=== PATIENT | female | born 1980 | race Caucasian/White ===

== ENCOUNTER → 2017-03-04 10:03 | Day surgery (SDC) | payer OTHER ==
[~2017-03-04 10:03] MED LIST: Acetaminophen TAB* 325 MG PO PRN; Dexamethasone IV* 4 MG/ML 1 ML (4 MG) ONE; DiMENhydriNATE IV* 50 MG/ML VIAL IV PUSH PRN; DiMENhydriNATE IV* 50 MG/ML VIAL ONE; Famotidine IV* 10 MG/ML 2 ML (20 mg) IV SLOW PU ONE; Famotidine IV* 10 MG/ML 2 ML (20 mg) ONE; HYDROmorphone* 1 MG/ML 1 ML SYR IV PRN; KETAMINE HCL* 50 MG/ML 10 ML VIAL ONE; Ketorolac INJ* 30 MG/ML 1 ML VIAL ONE; Lidocaine 1% INJ* 10 MG/ML 30 ML SDV ONE; Lidocaine 2% PF * 5 ML VIAL ONE; Midazolam* 1 MG/ML 5 ML VIAL (5 MG) ONE; Misoprostol TAB* 200 MCG ONE; Ondansetron INJ* 2 MG/ML VIAL ONE; Propofol* 10 MG/ML 20 ML BTL IV PUSH ONE; ceFOXitin 2 GM IVPREMIX* 2 GM/50 ML BAG ONE; fentaNYL* 50 MCG/ML 2 ML VIAL (100 MCG VIAL) ONE; oxyCODONE TAB* 5 MG TAB ONE; oxyCODONE TAB* 5 MG TAB PO PRN
[2017-03-04 11:04] LABS: Hematocrit 41 % (35-47); Hemoglobin 13.8 g/dl (12.0-16.0); Mean Corpuscular HGB Conc 34 g/dl (31-36); Mean Corpuscular Hemoglobin 33 pg (27-31); Mean Corpuscular Volume 96 fL (80-97); Mean Platelet Volume 7 um3 (7.4-10.4); Red Blood Count 4.26 10^6/ul (4.0-5.4); Red Cell Distribution Width 13 % (10.5-15); White Blood Count 10.3 10^3/ul (3.5-10.8)
[2017-03-04 11:43] LABS: TSH (Thyroid Stimulating Horm) 0.34 mcIU/mL (0.34-5.60)
[2017-03-04 11:50] LABS: Free T4 1.47 ng/dL (0.61-1.12)
[2017-03-04 12:40] VITALS: BP 110/77
--- NOTE | 2017-03-05 03:07 | OP ---
DATE OF OPERATION: 03/04/17 [facility] DATE OF : 82 SURGEON: Dariela Castillo MD. SUBSTATION OPERATOR CONVERSION: None. ANESTHESIOLOGIST: Ananya Gardner MD ANESTHESIA: Paracervical block with sedation. PRE-OP DIAGNOSIS: Missed , gestational sac 9 weeks. No pole identified. POST-OP DIAGNOSIS: Missed , gestational sac 9 weeks. No pole identified. OPERATIVE PROCEDURE: Dilation, evacuation, and curettage. ESTIMATED BLOOD LOSS: 100 cc. URINE OUTPUT: 50 cc of clear yellow urine. FLUIDS: 600 cc of crystalloid. FINDINGS: Revealed products of conception consistent with intrauterine on postevacuation curettage confirmed removal of products of conception. SPECIMEN: Endometrial contents. COMPLICATIONS: None apparent. DISPOSITION: Stable to recovery room. DESCRIPTION OF PROCEDURE: The patient was placed in dorsal lithotomy position. After undergoing sedation, legs were placed in candy cane stirrups. The perineum and vagina were prepped and draped in the sterile standard fashion. The patient was identified with universal protocol for correct procedure, position and the patient. Self cath was used to drain bladder of clear yellow urine. Self cath was removed. Sterile speculum was inserted. Cervix was visualized, grasped on the posterior lip with a single-tooth tenaculum, and dilated to #10 Hegar dilator. A 10-mm curved suction curette was applied for complete evacuation of intrauterine contents. Sharp curettage confirmed complete removal of intrauterine contents. Single-tooth tenaculum was removed. 800 mcg of misoprostol was placed intravaginally after the sterile speculum was removed. All sponge, needle, instrument, and blade counts were correct throughout the case. The patient tolerated the procedure well and went to the recovery room in stable condition. [id number] #: [id number] [facility]
[2017-03-05 19:14] LABS: Phospholipid Ab IgG < 9.4 GPL; Phospholipid Ab IgM, S < 9.4 MPL
[2017-03-08 17:48] LABS: Factor V Leiden Mutation Negative (Negative); Prothrombin 20210 Mutation Negative (Negative)
== END | disposition home or self-care (01) ==
LOC: OR 10:03
PROVIDERS: ATTEND Obstetrics & Gynecology
DX: O02.1 Missed abortion (principal); E03.9 Hypothyroidism, unspecified; J45.990 Exercise induced bronchospasm
CPT/HCPCS: 36415; 81240; 81241; 81291; 83036; 83605; 84439; 84443; 85025; 86147; 86850; 86870; 86880; 86900; 86901; 88233; 88291; 88305; A9270-GY; J0694; J1100; J1240; J1885; J2001; J2250; J2405; J2704; J3010

== ENCOUNTER 2023-01-19 05:24 | Inpatient (IN) ==
[2023-01-19] MEDS ORDERED: Lactated Ringers 1000 ml BAG 1,000 ML IV ONE (06:00)
[2023-01-19] MEDS ORDERED: Sodium Citrate/Citric Acid LIQ 15 ML UDC PO ONE (06:00)
[2023-01-19] MEDS ORDERED: ceFOXitin 2 GM IVPREMIX 2 GM/50 ML BAG IVPB ONE ×2 (06:00→07:00)
[2023-01-19] MEDS ORDERED: Buffered Lidocaine 1% SYRIN 1 ml INTRADERM ONE (06:00)
[2023-01-19] MEDS ORDERED: Lactated Ringers 1000 ml BAG 1,000 ML IV SCH ×2 (07:00→10:00)
[2023-01-19 07:09] LABS: ABS Basophils 0.1 10^3/uL (0.0-0.1); ABS Eosinophils 0.2 10^3/uL (0.0-0.5); ABS Monocytes 1.1 10^3/uL (0.0-0.9); Eosinophil % 1.2 %; Hematocrit 32.2 % (35-45); Hemoglobin 11.2 g/dL (11.5-14.3); Lymphocyte % 14.7 %; Mean Corpuscular Hemoglobin 32.6 pg (27-33); Mean Corpuscular Hgb Conc 34.7 g/dL (31-36); Mean Corpuscular Volume 93.8 fL (80-97); Mean Platelet Volume 7.6 fL (7.5-11.2); Platelet Count 244 10^3/uL (150-450); Red Blood Count 3.44 10^6/uL (3.63-4.92); Red Cell Distribution Width 13.3 % (12-17); White Blood Count 13.3 10^3/uL (3.8-11.8)
[2023-01-19] MEDS ORDERED: Acetaminophen IV 1 GM/100ML 1,000 MG/100 ML BAG IV PRN (07:20)
[2023-01-19] MEDS ORDERED: Ondansetron 4 mg VIAL 2 MG/ML 2 ml VIAL IV PRN (07:20)
[2023-01-19] MEDS ORDERED: Metoclopramide 5 MG/ML VIAL (10 mg) IV PRN (07:20)
[2023-01-19] MEDS ORDERED: Naloxone 0.4 mg VIAL 0.4 mg/ml 1 ml VIAL IV PUSH PRN (07:20)
[2023-01-19] MEDS ORDERED: Ondansetron 4 mg VIAL 2 MG/ML 2 ml VIAL ONE (07:28)
[2023-01-19] MEDS ORDERED: Oxytocin 10 UNITS/ML 1 ML VIAL ONE (07:28)
[2023-01-19] MEDS ORDERED: Dexamethasone IV 4 MG/ML VIAL 1 ml VIAL ONE (07:28)
[2023-01-19] MEDS ORDERED: Morphine PF AMP (0.5MG/ML) 5 MG/10 ML AMP ONE (07:29)
[2023-01-19] MEDS ORDERED: Acetaminophen IV 1 GM/100ML 1,000 MG/100 ML BAG IV ONE (08:29)
[2023-01-19 08:47] LABS: Urine Appearance Clear; Urine Bilirubin Negative (Negative); Urine Blood Negative (Negative); Urine Color Straw; Urine Glucose Negative (Negative); Urine Ketones Negative (Negative); Urine Nitrite Negative (Negative); Urine Protein Negative (Negative); Urine Specific Gravity 1.008 (1.002-1.030); Urine Urobilinogen Negative (Negative)
[2023-01-19] MEDS ORDERED: Witch Hazel PAD JAR TOPICAL PRN (09:28)
[2023-01-19] MEDS ORDERED: Glycerin ADULT 2.4 gm SUPP PR PRN (09:28)
[2023-01-19] MEDS ORDERED: Albuterol HFA INHALER 8 gm MDI INH PRN (09:30)
[2023-01-19 09:37] LABS: Urine Benzodiazepine Screen None Detected (None Detect); Urine Cannabinoids Screen None Detected (None Detect); Urine Opiates Screen None Detected (None Detect)
[2023-01-20 06:52] LABS: Hematocrit 30.6 % (35-45); Hemoglobin 10.8 g/dL (11.5-14.3); Mean Corpuscular Hemoglobin 33.2 pg (27-33); Mean Corpuscular Hgb Conc 35.2 g/dL (31-36); Mean Corpuscular Volume 94.4 fL (80-97); Mean Platelet Volume 7.5 fL (7.5-11.2); Platelet Count 255 10^3/uL (150-450); Red Blood Count 3.25 10^6/uL (3.63-4.92); Red Cell Distribution Width 13.5 % (12-17); White Blood Count 19.4 10^3/uL (3.8-11.8)
[2023-01-20 06:56] LABS: ABS Basophils 0.2 10^3/uL (0.0-0.1); ABS Eosinophils 0.1 10^3/uL (0.0-0.5); ABS Lymphocytes 2.6 10^3/uL (1.0-4.8); ABS Monocytes 1.7 10^3/uL (0.0-0.9); ABS Nucleated RBC 0.01 10^3/ul; Eosinophil % 0.3 %; Lymphocyte % 13.2 %
[2023-01-22 08:11] VITALS: BP 133/77
== END 2023-01-22 12:36 | disposition home or self-care (01) | DRG 788 ==
LOC: MCHOB 05:24
PROVIDERS: ADMIT Obstetrics & Gynecology; ATTEND Obstetrics & Gynecology